=== PATIENT | male | born 1985 | race Caucasian/White ===

== ENCOUNTER 2020-08-03 09:09 | Emergency (ER) | payer SELFPAY ==
[2020-08-03 09:22] VITALS: BP 119/73; PULSE 86; RESP 16; TEMP 36.6; O2SAT 97; BMI 21.7
--- NOTE | 2020-08-03 09:23 | XR_ITS ---
WS: [id number] XR shoulder RT min 2V* [id number] REASON FOR EXAM: pain FINDINGS: There appears to be misalignment of the acromioclavicular joint which may indicate grade 1, less like ly grade 2 AC separation. The alignment of the humeral head and glenoid on the frontal views demonstrate significant overlap. O n the Y view the humeral head, however, is not shown to be anterior or posterior to the glenoid. No fracture identified. XR/XR shoulder RT min 2V* [id number] IMPRESSION: Possible AC joint injury. The glenohumeral alignment on the frontal views show significant overlap. This may be due to patient positioning and patient pain. An axillary view of the rig ht shoulder may be be helpful to exclude any humeral head displacement.
[2020-08-03 09:27] VITALS: BP 119/73; PULSE 93; RESP 16; O2SAT 98
[2020-08-03 09:44] VITALS: BP 102/76; PULSE 91; RESP 17; O2SAT 99
--- NOTE | 2020-08-03 10:15 | W.ED.EXTPRO ---
HPI - Extremity Problem General: Chief complaint: Extremity Injury, Upper Stated complaint: right shoulder issues Time Seen by Provider: 08/03/20 09:21 History of Present Illness: HPI Narrative: 34-year-old male presents emergency room complaining of right shoulder pain. He was hunting recently and had an accident with a 4 pedroza. He denies any other injuries. Patient reports that 2 years ago patient he had a severe AC joint separation and recommended surgery but he never followed through with that. Now he has this reinjury. MD Complaint: joint pain Onset (ago): day(s) Pain Consistency: constant Location: right Quality: aching Radiation: none Relieving factors: rest Exacerbating factors: range of motion Associated symptoms: Deny arthralgias, chest pain, fever(s), myalgias, rash or short of breath Review of Systems Const: Denies: fever(s), chills, body aches, change in appetite, fatigue or malaise ENMT: Denies: throat pain, ear or mastoid pain, nasal discharge or nasal congestion Card: Denies: chest pain Resp: Denies: dyspnea, productive cough or non-productive cough GI: Denies: abdominal pain, nausea, vomiting, hematemesis, coffee ground emesis, diarrhea, constipation, bloating, hematochezia or melena Physical Exam Const: COMMON NORMALS: no acute distress GENERAL APPEARANCE: cooperative and comfortable ORIENTATION/CONSCIOUSNESS: Yes awake, Yes oriented to person, Yes oriented to place and Yes oriented to time HENMT: COMMON NORMALS: normocephalic, atraumatic and hearing grossly normal bilaterally HEAD & SCALP: normocephalic and atraumatic Neck/C-Spine: COMMON NORMALS: no JVD Resp: COMMON NORMALS: normal respiratory effort, No retractions, No use of accessory muscles and clear to auscultation bilaterally AUSCULTATION: clear to auscultation bilaterally Cardio: COMMON NORMALS: no JVD, regular rate, regular rhythm and No murmurs present (Cardio) RATE: regular rate RHYTHM: regular rhythm GI: COMMON NORMALS: Soft to palpation and No hepatosplenomegaly present AUSCULTATION: Yes normoactive bowel sounds PALPATION: Yes Soft to palpation, No Tenderness to palpation present (GI), No Guarding due to palpation present (GI) and Yes No hepatosplenomegaly present Extremity: COMMON NORMALS: normal to inspection, capillary refill normal, no clubbing, cyanosis or edema, no calf tenderness and no pedal edema NARRATIVE EXTREMITY EXAM: Marginal impingement sign right shoulder. Neurovascularly the right upper extremity is intact. Pain with distraction and compression at the AC joint, but no noticeable displacement on physical exam. Neuro: SENSORIUM/ORIENTATION: Yes oriented to person, Yes oriented to place and Yes oriented to time Skin: COMMON NORMALS: no rashes or lesions noted GENERAL SKIN EXAM: no rashes or lesions noted Course Vital Signs: Vital signs: Vital Signs Temperature 97.8 F 08/03/20 09:22 Pulse Rate 82 08/03/20 10:56 Respiratory Rate 16 08/03/20 10:56 Blood Pressure 113/79 08/03/20 10:56 Pulse Oximetry 98 08/03/20 10:56 MDM - Extremity (Nontraumatic) MDM Narrative: Medical decision making narrative: Exam and x-rays no indication of fracture am concerned he may have some underlying issues related to that previous AC joint. Claudia and go ahead and get him set up for an outpatient MRI and then follow-up referral to orthopedics. He declined hydrocodone here in the emergency room we will give him diclofenac to use as needed encouraged him to limit lifting to no more than 15 to 20 pounds not do any lifting above the level of his shoulders discussed all this with him. Discharge Plan Discharge Patient Disposition: Home Clinical Impression: AC joint pain Condition: Stable Prescriptions: New diclofenac sodium 75 mg tablet,delayed release (DR/EC) 75 mg PO Q12H PRN (Reason: pain) Qty: 20 RF: 0 No Action multivitamin Tablet 1 tab PO DAILY RF: 0 Aleve 220 mg Tablet 440 mg PO PRN RF: 0 Vitamin C 1 tab PO PRN RF: 0 Discharge Orders: Discharge Order (Routine); Ordered 08/03/20 Ordered By: Shakeel Cleveland Discharge Diet: Usual diet Discharge Activity: Increase activity as tolerated Activity Restrictions/Additional Instructions: This management will call to get you set up with orthopedics. Coding Level of Care Code ED Care Coordination Manager for Steven Fwmaria de jesus Exam Comprehensive
[2020-08-03 10:16] VITALS: BP 104/73; PULSE 67; RESP 14; O2SAT 98
[2020-08-03 10:56] VITALS: BP 113/79; PULSE 82; RESP 16; O2SAT 98
[2020-08-03 11:13] VITALS: BP 115/83; PULSE 102; RESP 16; O2SAT 97
--- NOTE | 2020-08-09 10:49 | DCPLANNER ---
major account manager had message to schedule an out patient MRI and follow up with ortho. major account manager faxed order to centralized scheduling, they will call patient with appointment information. major account manager will call ortho and schedule follow up after MRI is scheduled.
--- NOTE | 2020-08-17 14:23 | DCPLANNER ---
Patient has a MRI scheduled for 2019 at 8:45. manager of network called the ortho clinic, made referral for appointment to be scheduled after patients MRI.
--- NOTE | 2020-08-24 15:21 | DCPLANNER ---
Patient has a follow up appointment scheduled for Sunday, August 30, [address] at 3:[address] Christie. Clinic will call patient with appointment information.
--- NOTE | 2020-10-21 13:51 | DCPLANNER ---
Patient had a follow up appointment scheduled for an out patient MRI and a follow up appointment with ortho - patient did not attend either appointment.
== END 2020-08-03 11:15 | disposition home or self-care (01) ==
PROVIDERS: Emergency Provider Family Medicine
DX: M25.511 Pain in right shoulder (principal)
CPT/HCPCS: 12345; 73030; 99282

== ENCOUNTER → 2021-02-22 09:57 | Outpatient (BNVA) | payer OTHER, SELFPAY | DX: Z20.822 Contact with and (suspected) exposure to COVID-19 (principal) | CPT/HCPCS: 87635 ==

== ENCOUNTER 2022-05-07 19:11 | Emergency (ER) | payer MEDICAID, SELFPAY ==
[2022-05-07 19:40] VITALS: BP 107/68; PULSE 118; RESP 18; TEMP 37.3; O2SAT 95; BMI 23.0
[2022-05-07 20:40] LABS: SARS Covid-2 Antigen Positive (Negative)
[2022-05-07 20:55] LABS: Basophils % 0.3 %; Hematocrit 43.4 % (42.0-52.0); Lymphocytes # 0.5 10^3/uL (0.8-4.8); Lymphocytes % 6.5 %; Mean Corpuscular HGB Conc 34.6 g/dL (30.0-36.0); Mean Corpuscular Volume 83.9 fl (80-94); Monocytes # 0.7 10^3/uL (0.2-0.9); Monocytes % 9.4 %; Neutrophils # 6.55 10^3/uL (1.8-7.7); Neutrophils % 83.4 %; Nucleated Red Blood Cells % 0 %; Platelet Count 229 10^3/cmm (130-400); Red Blood Count 5.17 10^6/uL (4.1-5.3); Red Cell Distribution Width 12.1 % (12.1-15.1); White Blood Count 7.9 10^3/uL (4.0-10.0)
[2022-05-07 21:12] LABS: Alanine Aminotransferase 11 U/L (0-41); Albumin Level 4.2 g/dL (3.5-5.2); Alkaline Phosphatase 83 U/L (40-130); Anion Gap 15.6 (5-19); Aspartate Amino Transferase 13 U/L (0-40); Blood Urea Nitrogen 11 mg/dL (6-20); Calcium 8.8 mg/dL (8.5-10.5); Carbon Dioxide 22 mmol/L (22-29); Chloride 100 mmol/L (98-107); Glucose 148 mg/dL (65-115); Lipase 35 U/L (13-60); Osmolality Calculated 280 mOsm/kg (285-295); Potassium 3.6 mmol/L (3.5-5.1); Sodium 134 mmol/L (136-145); Total Bilirubin 0.3 mg/dL (0.15-1.2); Total Protein 7.2 g/dL (6.6-8.7)
--- NOTE | 2022-05-07 22:07 | W.ED.COVID ---
HPI - COVID General: Chief Complaint: COVID symptoms Stated Complaint: N/V Abd pain Time Seen by Provider: 05/07/22 21:43 Triage information: Has fever, cough or shortness of breath. No known COVID + exposure last 14 days History of Present Illness: 36-year-old male patient comes in today for complaints of cough, chills, and headache starting this morning. Patient did report some episodes of nausea and vomiting also. Patient reports poor oral intake. Patient appears nontoxic. Patient appears unwell. Patient appears in no pain. COVID 19 common symptoms: positive fever(s), chills, fatigue, body aches, nausea and vomiting; negative dyspnea COVID Results: SARS-CoV-2 Antigen (Rapid) Positive (Negative) H 05/07/22 19:44 SARS-CoV-2 RNA (RT-PCR) Not detected (NOT DETECTED) 02/22/21 09:57 Review of Systems General: Reports: 10 or more systems reviewed and unremarkable except in HPI and below Const: Reports: fever(s), chills, body aches and fatigue Resp: Denies: dyspnea GI: Reports: nausea and vomiting Physical Exam Const: COMMON NORMALS: alert HENMT: COMMON NORMALS: normocephalic HEAD & SCALP: normocephalic Neck/C-Spine: COMMON NORMALS: full ROM Resp: COMMON NORMALS: normal respiratory effort and clear to auscultation bilaterally AUSCULTATION: clear to auscultation bilaterally Cardio: COMMON NORMALS: regular rate and regular rhythm RATE: regular rate RHYTHM: regular rhythm GI: COMMON NORMALS: Soft to palpation PALPATION: Yes Soft to palpation Extremity: COMMON NORMALS: normal to inspection Neuro: SENSORIUM/ORIENTATION: Yes alert Skin: COMMON NORMALS: turgor normal GENERAL SKIN EXAM: turgor normal Course Vital Signs: Vital signs: Vital Signs Temperature 99.1 F 05/07/22 19:40 Pulse Rate 94 05/07/22 23:36 Respiratory Rate 14 05/07/22 23:36 Blood Pressure 106/58 05/07/22 23:36 Pulse Oximetry 96 05/07/22 23:36 Oxygen Delivery Me thod 05/07/22 19:40 MDM - COVID Medical Decision Making 36-year-old male patient comes in with illness starting today. On exam patient has good air movement throughout lung kiser. Abdomen soft nontender. Skin is warm and dry. Vital signs are normal except for some elevation in pulse. Differential diagnosis includes pneumonia, COVID-19, dehydration, viral syndrome. COVID-19 test was positive. Chest x-ray was unremarkable. Laboratory results were unremarkable. Patient was treated with 1 L of IV fluid, 4 mg Zofran, dexamethasone and ketorolac. Patient was encouraged drink plenty of fluids and follow-up with primary care. Lab Data : 05/07/22 20:48 05/07/22 20:48 Laboratory Results WBC 7.9 10^3/uL (4.0-10.0) 05/07/22 20:48 RBC 5.17 10^6/uL (4.1-5.3) 05/07/22 20:48 Hgb 15.0 g/dL (11.7-16.6) 05/07/22 20:48 Hct 43.4 % (42.0-52.0) 05/07/22 20:48 MCV 83.9 fl (80-94) 05/07/22 20:48 MCH 29.0 pg (28.0-34.0) 05/07/22 20:48 MCHC 34.6 g/dL (30.0-36.0) 05/07/22 20:48 RDW 12.1 % (12.1-15.1) 05/07/22 20:48 Plt Count 229 10^3/cmm (130-400) 05/07/22 20:48 MPV 9.0 fL (7.4-10.4) 05/07/22 20:48 Neut % (Auto) 83.4 % 05/07/22 20:48 Lymph % (Auto) 6.5 % 05/07/22 20:48 Hunt % (Auto) 9.4 % 05/07/22 20:48 Eos % (Auto) 0.0 % 05/07/22 20:48 Baso % (Auto) 0.3 % 05/07/22 20:48 Neut # (Auto) 6.55 10^3/uL (1.8-7.7) 05/07/22 20:48 Lymph # (Auto) 0.5 10^3/uL (0.8-4.8) L 05/07/22 20:48 Hunt # (Auto) 0.7 10^3/uL (0.2-0.9) 05/07/22 20:48 Eos # (Auto) 0.0 10^3/uL (0.0-0.8) 05/07/22 20:48 Baso # (Auto) 0.0 10^3/uL (0.0-0.1) 05/07/22 20:48 Nucleated RBC % (auto) 0 % 05/07/22 20:48 Nucleated RBCs # 0.0 /100WBC 05/07/22 20:48 Sodium 134 mmol/L (136-145) L 05/07/22 20:48 Potassium 3.6 mmol/L (3.5-5.1) 05/07/22 20:48 Chloride 100 mmol/L (98-107) 05/07/22 20:48 Carbon Dioxide 22 mmol/L (22-29) 05/07/22 20:48 Anion Gap 15.6 (5-19) 05/07/22 20:48 BUN 11 mg/dL (6-20) 05/07/22 20:48 Creatinine 0.9 mg/dL (0.7-1.2) 05/07/22 20:48 GFR Calculation 96.0 mL/min (90-130) 05/07/22 20:48 Glucose 148 mg/dL (65-115) H 05/07/22 20:48 Calculated Osmolality 280 mOsm/kg (285-295) L 05/07/22 20:48 Calcium 8.8 mg/dL (8.5-10.5) 05/07/22 20:48 Total Bilirubin 0.3 mg/dL (0.15-1.2) 05/07/22 20:48 AST 13 U/L (0-40) 05/07/22 20:48 ALT 11 U/L (0-41) 05/07/22 20:48 Alkaline Phosphatase 83 U/L (40-130) 05/07/22 20:48 Total Protein 7.2 g/dL (6.6-8.7) 05/07/22 20:48 Albumin 4.2 g/dL (3.5-5.2) 05/07/22 20:48 Globulin 3.0 g/dL (1.3-4.6) 05/07/22 20:48 Lipase 35 U/L (13-60) 05/07/22 20:48 SARS-CoV-2 Ag (Rapid) Positive (Negative) H 05/07/22 19:44 SARS-CoV-2 Antigen (Rapid) Positive (Negative) H 05/07/22 19:44 SARS-CoV-2 RNA (RT-PCR) Not detected (NOT DETECTED) 02/22/21 09:57 Discharge Plan Discharge Patient Disposition: Home Clinical Impression: COVID-19 Condition: Stable Prescriptions: New ondansetron 4 mg tablet,disintegrating 4 mg PO Q8H PRN (Reason: nausea and vomiting) Qty: 7 0RF No Action diclofenac sodium 75 mg tablet,delayed release (DR/EC) 75 mg PO Q12H PRN (Reason: pain) Qty: 20 0RF multivitamin Tablet 1 tab PO DAILY Aleve 220 mg Tablet 440 mg PO PRN Vitamin C 1 tab PO PRN Discharge Orders: Discharge ED (Routine); Ordered 05/07/22 Ordered By: Adrian Roach Discharge Diet: Usual diet Discharge Activity: Increase activity as tolerated Patient Instructions: COVID-19 (Coronavirus Disease 2019) (ED) Activity Restrictions/Additional Instructions: Drink plenty of fluids. Is important to stay well-hydrated. Drink sips of fluid frequently in order to maintain hydration. Use acetaminophen and ibuprofen for pain and fever. Activity as tolerated. Follow-up with primary care for further instruction. Return to ER for new concerns. Per recommended CDC guidelines it is recommended you quarantine for 5 days away from other individuals. After that you should wear a mask for 10 days after the quarantine period. Coding Level of Care Code ED Clinical Laboratory Aide for Steven Fwmaria de jesus Exam Comprehensive
[2022-05-07] MEDS: sodium chloride 0.9% 1,000 ML 999 ML IV (22:25)
[2022-05-07] MEDS: ondansetron 2 mg/ML SDV 2 mL 4 MG IVP (22:25)
[2022-05-07] MEDS: ketorolac 30 mg/mL INJ 15 MG IVP (22:28)
[2022-05-07] MEDS: dexamethasone 10 mg/mL INJ 6 MG IVP (22:30)
[2022-05-07 23:36] VITALS: BP 106/58; PULSE 94; RESP 14; O2SAT 96
== END 2022-05-07 23:26 | disposition home or self-care (01) ==
PROVIDERS: Emergency Medicine; Emergency Provider Nurse Practitioner Family
DX: U07.1 COVID-19 (principal)
CPT/HCPCS: 80053; 83690; 85025; 87426; 96374; 96375; 99284; J1100; J1885; J2405; J7030

== ENCOUNTER → 2022-10-15 14:01 | Outpatient (BNVA) | payer MEDICAID, SELFPAY | PROVIDERS: Referring Provider Nurse Practitioner Family; Visit Provider Student in an Organized Health Care Education/Training Program | DX: G25.89 Other specified extrapyramidal and movement disorders (principal); S43.51XA Sprain of right acromioclavicular joint, initial encounter; W17.89XA Other fall from one level to another, initial encounter; M25.511 Pain in right shoulder | CPT/HCPCS: 73030 ==

== ENCOUNTER 2024-03-15 05:39 | Emergency (ER) | payer SELFPAY ==
[2024-03-15 05:47] VITALS: BP 120/86; PULSE 95; RESP 16; TEMP 36.5; O2SAT 98; BMI 23.5
--- NOTE | 2024-03-15 05:53 | ED_ITS ---
HPI - Abdominal Pain 2 General: Chief Complaint: Abdominal Pain Stated Complaint: Lower ABD Pain into Testicles Time Seen by Provider: 03/15/24 05:50 Source: patient Mode of arrival: ambulatory Limitations: no limitations History of Present Illness: 38-year-old male states he was lifting a TV 4 days ago states he is living with a friend and his friend dropped it and felt like and strained his lower abdomen. He has been having some increasing lower abdominal pain since then. He states its suprapubic worse with palpation rates his pain a 3 out of 10 he denies any testicle pain denies any vomiting or diarrhea Associated Symptoms: Denies chills, diarrhea, dysuria, fever(s), nausea and vomiting Review of Systems 2 Const: Denies: fever(s), chills, body aches or change in appetite ENMT: Denies: throat pain or dental pain Card: Denies: chest pain Resp: Denies: dyspnea GI: Reports: abdominal pain; Denies: nausea, vomiting or diarrhea : Denies: dysuria Musc: Denies: neck pain or back pain Skin/Breast: Denies: rash Neuro: Denies: headache(s) Physical Exam 2 Const: COMMON NORMALS: no acute distress, patient oriented x3 and healthy appearing HENMT: COMMON NORMALS: normocephalic and atraumatic HEAD & SCALP: n ormocephalic and atraumatic Neck/C-Spine: COMMON NORMALS: full ROM and supple Chest: COMMONS NORMALS: normal inspection of the chest Resp: COMMON NORMALS: normal respiratory effort GI: COMMON NORMALS: Normal to inspection, nondistended, normoactive bowel sounds present, Soft to palpation and no masses PALPATION: Yes Soft to palpation OTHER: Suprapubic tenderness is mild Extremity: COMMON NORMALS: normal to inspection and full ROM Neuro: COMMON NORMALS: patient oriented x3, moves all extremities and no focal motor deficits Psych: COMMON NORMALS: mental status grossly normal, Normal thought process present and cooperative THOUGHT PROCESS: Normal thought process present Skin: COMMON NORMALS: no rashes or lesions noted and no wounds GENERAL SKIN EXAM: no rashes or lesions noted Course 2 Vital Signs: Vital signs: Vital Signs Temperature 97.7 F 03/15/24 05:47 Pulse Rate 113 H 03/15/24 07:52 Respiratory Rate 16 03/15/24 06:30 Blood Pressure 130/85 03/15/24 06:30 Pulse Oximetry 97 03/15/24 07:52 Oxygen Delivery Me thod Room Air 03/15/24 07:52 MDM - Abdominal Pain Medical Decision Making Patient presents here with abdominal pain he states he has had some dysuria over the last 4 days as well. He does have a urinary tract infection ultrasound of his testicles are normal CT shows thickened urinary bladder no signs of kidney stone we will start him on antibiotics he is to follow-up with PCP and return if worsening. Medical Records I reviewed the patient's medical records. Lab Data I reviewed the patient's lab results. 03/15/24 06:03 03/15/24 06:03 Labs/Radiology: Radiology Impressions Abdomen/Pelvis CT 03/15/24 07:15 IMPRESSION: 1. Circumferential wall thickening involving the urinary bladder suspicious for a cystitis. Recommend clinical correlation and correlation with urine studies. Laboratory Results WBC 12.93 10^3/uL (3.29-11.43) H 03/15/24 06:03 RBC 5.37 10^6/uL (3.85-5.65) 03/15/24 06:03 Hgb 15.10 g/dL (11.27-16.99) 03/15/24 06:03 Hct 44.9 % (37-53) 03/15/24 06:03 MCV 83.6 fl (82-101) 03/15/24 06:03 MCH 28.1 pg (27-33) 03/15/24 06:03 MCHC 33.6 g/dL (30-55) 03/15/24 06:03 RDW 13.0 % (12.1-15.1) 03/15/24 06:03 Plt Count 321 10^3/cmm (157-399) 03/15/24 06:03 MPV 8.3 fL (7.4-10.4) 03/15/24 06:03 Neut % (Auto) 64.5 % 03/15/24 06:03 Lymph % (Auto) 23.3 % 03/15/24 06:03 Walton % (Auto) 8.1 % 03/15/24 06:03 Eos % (Auto) 3.2 % 03/15/24 06:03 Baso % (Auto) 0.5 % 03/15/24 06:03 Neut # (Auto) 8.34 10^3/uL (1.8-7.7) H 03/15/24 06:03 Lymph # (Auto) 3.0 10^3/uL (0.8-4.8) 03/15/24 06:03 Walton # (Auto) 1.1 10^3/uL (0.2-0.9) H 03/15/24 06:03 Eos # (Auto) 0.4 10^3/uL (0.0-0.8) 03/15/24 06:03 Baso # (Auto) 0.1 10^3/uL (0.0-0.1) 03/15/24 06:03 Nucleated RBC % (auto) 0 % 03/15/24 06:03 Nucleated RBCs # 0.0 /100WBC 03/15/24 06:03 Sodium 136 mmol/L (136-145) 03/15/24 06:03 Potassium 4.7 mmol/L (3.5-5.1) 03/15/24 06:03 Chloride 99 mmol/L (98-107) 03/15/24 06:03 Carbon Dioxide 28 mmol/L (22-29) 03/15/24 06:03 Anion Gap 13.7 (5-19) 03/15/24 06:03 BUN 10 mg/dL (6-20) 03/15/24 06:03 Creatinine 0.7 mg/dL (0.7-1.2) 03/15/24 06:03 GFR Calculation 126.9 mL/min (90-130) 03/15/24 06:03 Glucose 102 mg/dL (65-115) 03/15/24 06:03 Calculated Osmolality 281 mOsm/kg (285-295) L 03/15/24 06:03 Calcium 9.1 mg/dL (8.5-10.5) 03/15/24 06:03 Total Bilirubin 0.2 mg/dL (0.15-1.2) 03/15/24 06:03 AST 13 U/L (0-40) 03/15/24 06:03 ALT 13 U/L (0-41) 03/15/24 06:03 Alkaline Phosphatase 96 U/L (40-130) 03/15/24 06:03 Total Protein 7.5 g/dL (6.6-8.7) 03/15/24 06:03 Albumin 3.9 g/dL (3.5-5.2) 03/15/24 06:03 Globulin 3.6 g/dL (1.3-4.6) 03/15/24 06:03 Lipase 34 U/L (13-60) 03/15/24 06:03 Urine Color Yellow (Yellow) 03/15/24 06:45 Urine Appearance Cloudy (CLEAR) A 03/15/24 06:45 Urine pH 6 (5-7) 03/15/24 06:45 Ur Specific Saffell 1.015 (1.005-1.030) 03/15/24 06:45 Urine Protein 1+ (Negative) H 03/15/24 06:45 Urine Glucose (UA) Norm (Normal) 03/15/24 06:45 Urine Ketones Negative (Negative) 03/15/24 06:45 Urine Blood 2+ (Negative) H 03/15/24 06:45 Urine Nitrate Negative (Negative) 03/15/24 06:45 Urine Bilirubin Neg (Negative) 03/15/24 06:45 Urine Urobilinogen Norm mg/dL (Negative) 03/15/24 06:45 Ur Leukocyte Esterase 2+ (Negative) H 03/15/24 06:45 Urine RBC 10-15 /hpf (0-2) H 03/15/24 06:45 Urine WBC Too numerous to cnt /hpf (0-5) H 03/15/24 06:45 Ur Squamous Epith Cells None /hpf (0-5) 03/15/24 06:45 Ur Transition Epith Cell Rare /hpf 03/15/24 06:45 Amorphous Sediment Not Reportable 03/15/24 06:45 Urine Bacteria 1+ /hpf (NONE) H 03/15/24 06:45 All radiology interpretation(s) finalized by discharge Discharge Plan Discharge Patient Disposition: Home Clinical Impression: Acute cystitis, Abdominal pain Condition: Stable Prescriptions: New cephalexin 500 mg capsule 500 mg PO TID 7 Days Qty: 21 0RF Naprosyn 500 mg tablet 500 mg PO BID PRN (Reason: pain) Qty: 20 0RF No Action multivitamin Tablet 1 tab PO DAILY Aleve 220 mg Tablet 440 mg PO PRN Vitamin C 1 tab PO PRN Discharge Orders: Discharge ED (Routine); Ordered 03/15/24 Ordered By: Haris Neal Discharge Diet: Advance as tolerated Discharge Activity: Resume usual activity Patient Instructions: Urinary Tract Infection in Men (ED), Abdominal Pain (ED) Coding Level of Care Code ED Filing Clerk for Steven Oseguera
[2024-03-15] MEDS: ketorolac 30 mg/mL INJ IVP (06:01)
[2024-03-15 06:08] LABS: Basophils # 0.1 10^3/uL (0.0-0.1); Basophils % 0.5 %; Eosinophils # 0.4 10^3/uL (0.0-0.8); Eosinophils % 3.2 %; Hematocrit 44.9 % (37-53); Lymphocytes % 23.3 %; Mean Corpuscular HGB Conc 33.6 g/dL (30-55); Mean Corpuscular Hemoglobin 28.1 pg (27-33); Mean Corpuscular Volume 83.6 fl (82-101); Mean Platelet Volume 8.3 fL (7.4-10.4); Monocytes # 1.1 10^3/uL (0.2-0.9); Monocytes % 8.1 %; Neutrophils # 8.34 10^3/uL (1.8-7.7); Neutrophils % 64.5 %; Nucleated Red Blood Cells % 0 %; Platelet Count 321 10^3/cmm (157-399); Red Blood Count 5.37 10^6/uL (3.85-5.65); White Blood Count 12.93 10^3/uL (3.29-11.43)
[2024-03-15 06:25] LABS: Alanine Aminotransferase 13 U/L (0-41); Albumin Level 3.9 g/dL (3.5-5.2); Alkaline Phosphatase 96 U/L (40-130); Anion Gap 13.7 (5-19); Aspartate Amino Transferase 13 U/L (0-40); Blood Urea Nitrogen 10 mg/dL (6-20); Calcium 9.1 mg/dL (8.5-10.5); Carbon Dioxide 28 mmol/L (22-29); Chloride 99 mmol/L (98-107); Creatinine Clr Calc Pharmacy 163.9735; Globulin 3.6 g/dL (1.3-4.6); Glomerular Filtration Rate 126.9 mL/min (90-130); Glucose 102 mg/dL (65-115); Lipase 34 U/L (13-60); Osmolality Calculated 281 mOsm/kg (285-295); Potassium 4.7 mmol/L (3.5-5.1); Sodium 136 mmol/L (136-145); Total Bilirubin 0.2 mg/dL (0.15-1.2); Total Protein 7.5 g/dL (6.6-8.7)
[2024-03-15 06:30] VITALS: BP 130/85; PULSE 85; RESP 16; O2SAT 95
[2024-03-15 07:13] LABS: Blood Urine 2+ (Negative); Glucose Urine UA Norm (Normal); Ketones Urine Negative (Negative); Protein Urine 1+ (Negative); Specific Gravity, Urine 1.015 (1.005-1.030); Urine Appearance Cloudy (CLEAR); Urine Color Yellow (Yellow); pH Urine 6 (5-7)
[2024-03-15 07:14] LABS: Add Urine Culture? Yes; Add Urine Microscopic? YES; Bacteria Urine 1+ /hpf; Bilirubin Urine Neg (Negative); Leukocyte Esterase Urine 2+ (Negative); Nitrate Urine Negative (Negative); Transitional Epi Cells Urine RARE /hpf; Urobilinogen Urine Norm (Negative); WBC Urine TOO NUMEROUS TO CNT /hpf (0-5)
--- NOTE | 2024-03-15 07:15 | USR_ITS ---
PROCEDURE INFORMATION: Exam: US Scrotum Exam date and time: 03/15/2024 8:03 AM Age: 38 years old Clinical indication: Scrotum pain; Additional info: Test pain TECHNIQUE: Imaging protocol: Real-time ultrasound of the scrotum and contents with color Doppler and image documentation. COMPARISON: CT abdomen pelvis w con* [id number] 03/15/2024 7:32 AM FINDINGS: Right testicle: The right testicle measures 4.9 x 2.9 x 2.3 cm in size. No mass. Normal color Doppler and arterial waveforms. No torsion. The right epididymis is normal. There is a small hydrocele. No varicocele is appreciated. Left testicle: The left testicle measures 4.4 x 2.6 x 2.2 cm in size. No mass. Normal color Doppler and arterial waveforms. No torsion. The left epididymis is normal. There is a small hydrocele. No varicocele is identified. Epididymides: Normal. Scrotum/soft tissues: Normal. US/US scrotum [id number] IMPRESSION: Small bilateral hydroceles.
--- NOTE | 2024-03-15 07:15 | CTR_ITS ---
PROCEDURE INFORMATION: Exam: CT Abdomen And Pelvis With Contrast Exam date and time: 03/15/2024 7:32 AM Age: 38 years old Clinical indication: Abdominal pain; Localized; Lower; Additional info: Abd pain TECHNIQUE: Imaging protocol: Computed tomography of the abdomen and pelvis with contrast. Radiation optimization: All CT scans at this facility use at least one of these dose optimization techniques: automated exposure control; mA and/or kV adjustment per patient size (includes targeted exams where dose is matched to clinical indication); or iterative reconstruction. Contrast material: OMNI 350; Contrast volume: 100 ml; Contrast route: INTRAVENOUS (IV); COMPARISON: No relevant prior studies available. RADIATION DOSE METRICS: Total DLP (mGy-cm): 458.53 FINDINGS: Lungs: Lung bases are clear as visualized. Liver: Normal. No mass. Gallbladder and biliary ducts: Normal. No calcified stones. No ductal dilation. Pancreas: Normal. No ductal dilation. Spleen: Normal. No splenomegaly. Adrenal glands: Normal. No mass. Kidneys and ureters: Normal. No hydronephrosis. Stomach and bowel: No dilated loops of large or small bowel is appreciated. There are a few scattered colonic diverticula. No bowel wall thickening is identified. Appendix: No evidence of appendicitis. Intraperitoneal space: Unremarkable. No free air. No significant fluid collection. Vasculature: Unremarkable. No abdominal aortic aneurysm. Lymph nodes: Unremarkable. No enlarged lymph nodes. Urinary bladder: There is circumferential wall thickening involving the bladder suspicious for a cystitis. Recommend clinical correlation and correlation with urinalysis. Reproductive: Unremarkable as visualized. Bones/joints: Unremarkable. No acute fracture. Soft tissues: There is a tiny fat filled periumbilical hernia. CT/CT abdomen pelvis w con* [id number] IMPRESSION: 1. Circumferential wall thickening involving the urinary bladder suspicious for a cystitis. Recommend clinical correlation and correlation with urine studies.
[2024-03-15] MEDS: iohexol 350 mg/mL 500 mL Btl (per mL) IV (07:35)
[2024-03-15] MEDS: cefTRIAXone 1,000 mg SDV 1000 MG IVP (07:48)
[2024-03-15 07:52] VITALS: PULSE 113; O2SAT 97
[2024-03-15] MEDS: water for injection-sterile 10 ML (07:54)
[2024-03-15 08:37] VITALS: BP 120/73; PULSE 86; O2SAT 100
== END 2024-03-15 08:38 | disposition home or self-care (01) ==
PROVIDERS: Emergency Provider Emergency Medicine
DX: N30.00 Acute cystitis without hematuria (principal); R10.30 Lower abdominal pain, unspecified
CPT/HCPCS: 74177; 76870; 80053; 81001; 83690; 85025; 87077; 87086; 87186; 96374; 96375; 99285; J0696; J1885; Q9967